=== PATIENT | male | born 1985 | race Caucasian/White ===

== ENCOUNTER 2021-04-06 08:45 | Emergency (ER) | payer MEDICAID, OTHER ==
[~2021-04-06] VITALS: Ht 170.2 cm; Wt 88.0 kg
[2021-04-06] MEDS ORDERED: KETOROLAC TROMETH 60MG/2ML VIAL IM ONE (10:00)
[2021-04-06] MEDS ORDERED: diphenhdrAMINE HCL 50 MG/1 ML VL IM ONE (10:00)
[2021-04-06 10:01] VITALS: BP 167/108
== END 2021-04-06 10:47 | disposition home or self-care (01) ==
LOC: ER 08:45
DX: L50.9 Urticaria, unspecified (principal); R21 Rash and other nonspecific skin eruption; T50.Z95A Adverse effect of other vaccines and biological substances, initial encounter; Y92.89 Other specified places as the place of occurrence of the external cause
CPT/HCPCS: 96372; 99284; J1200; J1885

== ENCOUNTER 2021-12-17 20:14 | Emergency (ER) | payer OTHER, MEDICAID ==
[~2021-12-17] VITALS: Ht 170.2 cm; Wt 91.6 kg
[2021-12-17 20:15] VITALS: BP 170/107
[2021-12-17] MEDS ORDERED: methylPREDNISolone SOD SUCC 125 MG/2 ML VL IM ONE (20:45)
[2021-12-17] MEDS ORDERED: diphenhdrAMINE HCL 50 MG/1 ML VL IM ONE (20:45)
== END 2021-12-18 01:55 | disposition home or self-care (01) ==
LOC: ER 20:15
DX: T78.00XA Anaphylactic reaction due to unspecified food, initial encounter (principal)
CPT/HCPCS: 96372; 99284; J1200; J2930

== ENCOUNTER 2022-02-24 13:38 | Emergency (ER) | payer MEDICAID, OTHER ==
[~2022-02-24] VITALS: Ht 170.2 cm; Wt 92.5 kg
[2022-02-24 13:50] VITALS: BP 167/100
[2022-02-24] MEDS ORDERED: methylPREDNISolone SOD SUCC 125 MG/2 ML VL IM ONE (14:00)
[2022-02-24] MEDS ORDERED: FAMOTIDINE 20 MG TAB PO ONE (14:00)
[2022-02-24] MEDS ORDERED: diphenhdrAMINE HCL 50 MG/1 ML VL IM ONE (14:00)
[2022-02-24] MEDS ORDERED: DIPH25CA66 PO (15:08)
[2022-02-24] MEDS ORDERED: FAMO20TA10 PO (15:08)
[2022-02-24] MEDS ORDERED: PRED10TA PO (15:08)
== END 2022-02-24 15:30 | disposition home or self-care (01) ==
LOC: ER 13:38
DX: T78.40XA Allergy, unspecified, initial encounter (principal); L50.9 Urticaria, unspecified; X58.XXXA Exposure to other specified factors, initial encounter
CPT/HCPCS: 96372; 99284; J1200; J2930

== ENCOUNTER 2023-01-16 19:03 | Emergency (ER) | payer MEDICAID ==
[~2023-01-16] VITALS: Ht 170.2 cm; Wt 93.3 kg
[~2023-01-16 19:03] MED LIST: DIPH25CA66 PO; FAMO20TA10 PO; PRED10TA PO
[2023-01-16 21:14] LABS: Basophils # (auto) 0.1 10 ^3/uL (0-0.2); Basophils % (auto) 0.3 % (0.0-2.0); Eosinophils # (auto) 0.1 10 ^3/uL (0-0.8); Eosinophils % (auto) 0.3 % (0.0-7.0); Hematocrit 45.2 % (41.0-53.0); Hemoglobin 15.5 g/dL (13.5-17.5); Lymphocytes # (auto) 2.1 10 ^3/uL (0.4-5.4); Lymphocytes % (auto) 12.2 % (10.0-50.0); Mean Corpuscular Hemoglobin 30.9 pg (28.0-32.0); Mean Corpuscular Hgb Conc. 34.4 g/dL (32.0-36.0); Mean Corpuscular Volume 89.9 fL (80.0-100.0); Monocytes # (auto) 0.8 10 ^3/uL (0-1.3); Monocytes % (auto) 4.7 % (0.0-12.0); Neutrophils # (auto) 13.9 10 ^3/uL (1.6-8.6); Neutrophils % (auto) 82.5 % (37.0-80.0); Nucleated Red Blood Cells % 0.3 %; Red Blood Cells 5.03 10^6/uL (4.5-5.90); White Blood Cell 16.9 10^3/uL (4.4-10.8)
[2023-01-16 21:18] LABS: Albumin 4.5 g/dL (3.4-5.0); Calcium 8.9 mg/dL (8.5-10.1); Potassium 4.1 mmol/L (3.5-5.1)
[2023-01-16 21:22] LABS: BUN/Creatinine Ratio 13.5; Bilirubin, Total 0.5 mg/dL (0.2-1.0); Total Protein 7.6 g/dL (6.4-8.2)
[2023-01-16 21:30] LABS: Urine Bacteria FEW /hpf (None Seen); Urine Blood 3+ /uL (Negative); Urine Mucus FEW (None Seen); Urine Specific Gravity 1.026 (1.001-1.035); Urine WBC 3 /hpf (0 - 3)
[2023-01-16] MEDS ORDERED: KETOROLAC TROMETH 60MG/2ML VIAL IM ONE (22:45)
[2023-01-17 00:40] VITALS: BP 150/90
== END 2023-01-17 00:50 | disposition home or self-care (01) ==
LOC: ER 19:03
DX: N20.0 Calculus of kidney (principal)
CPT/HCPCS: 36415; 74176; 80053; 81001; 85025; 96372; 99285; J1885

== ENCOUNTER 2023-07-27 16:49 | Emergency (ER) | payer MEDICAID ==
[~2023-07-27] VITALS: Ht 170.2 cm; Wt 91.8 kg
[2023-07-27] MEDS ORDERED: IBUP-1455 PO (18:10)
[2023-07-27] MEDS ORDERED: CYCL-839 PO (18:10)
[2023-07-27] MEDS ORDERED: KETOROLAC TROMETH 60MG/2ML VIAL IM ONE (18:15)
[2023-07-27] MEDS ORDERED: DexAMETHasone SOD PHOS 10MG/1ML VIAL INJ IM ONE (18:15)
[2023-07-27 20:20] VITALS: BP 157/98; PULSE 98; RESP 19; TEMP 98; O2SAT 97
== END 2023-07-27 20:20 | disposition home or self-care (01) ==
LOC: ER 16:49
DX: S33.5XXA Sprain of ligaments of lumbar spine, initial encounter (principal); I10 Essential (primary) hypertension; Z79.1 Long term (current) use of non-steroidal anti-inflammatories (NSAID); Z79.899 Other long term (current) drug therapy; X50.1XXA Overexertion from prolonged static or awkward postures, initial encounter; Y93.89 Activity, other specified; Y92.89 Other specified places as the place of occurrence of the external cause; Y99.8 Other external cause status
CPT/HCPCS: 72100; 96372; 99284; J1100; J1885